=== PATIENT | male | born 1990 | race Caucasian/White ===

== ENCOUNTER 2019-05-05 20:34 | Inpatient (IN) | payer BC, MEDICAID, OTHER ==
[~2019-05-05] VITALS: Ht 182.9 cm; Wt 81.0 kg
[2019-05-05] MEDS ORDERED: pantoprazole 40 MG vial IV ONE (21:10)
[2019-05-05] MEDS ORDERED: normal saline 1000ml 1,000 ML IV ONE (21:15)
[2019-05-05] MEDS ORDERED: ESOMEPRAZOLE 40 MG VIAL IV ONE (21:15)
[2019-05-05] MEDS ORDERED: ondansetron/PF 4mg/2ml inj IV ONE (21:15)
[2019-05-05 21:33] LABS: BASOPHILS # (AUTO) 0.1 X10'3 (0-0.2); BASOPHILS % (AUTO) 1.2 % (0-1); EOSINOPHILS # (AUTO) 0.1 X10'3 (0-0.9); EOSINOPHILS % (AUTO) 0.8 % (0-6); HEMATOCRIT 45.3 % (42.0-52.0); HEMOGLOBIN 15.5 g/dl (14.0-17.9); LYMPHOCYTES # (AUTO) 2.4 X10'3 (1.1-4.8); LYMPHOCYTES % (AUTO) 31.5 % (21-51); MEAN CORPUSCULAR HEMOGLOBIN 33.5 PG (27.0-31.0); MEAN CORPUSCULAR HGB CONC 34.3 g/dL (33.0-36.5); MEAN CORPUSCULAR VOLUME 97.7 FL (78-98); MEAN PLATELET VOLUME 8.3 FL (7.4-10.4); MONOCYTES # (AUTO) 1.2 X10'3 (0-0.9); MONOCYTES % (AUTO) 15.3 % (2-12); NEUTROPHILS # (AUTO) 3.9 X10'3 (1.8-7.7); NEUTROPHILS % (AUTO) 51.2 % (42-75); PLATELET COUNT 240 X10'3 (140-440); RED BLOOD COUNT 4.64 X10'6 (4.70-6.10); RED CELL DISTRIBUTION WIDTH 14.8 % (11.5-14.5); WHITE BLOOD COUNT 7.7 X10'3 (4.5-11.0)
[2019-05-05 21:43] LABS: ALANINE AMINOTRANSFERASE 531 U/L (12-78); ALBUMIN 3.6 G/DL (3.4-5.0); ALKALINE PHOSPHATASE 182 IU/L (46-116); ANION GAP 10 (8-16); ASPARTATE AMINO TRANSFERASE 573 U/L (10-37); BILIRUBIN,TOTAL 3.3 MG/DL (0.1-1.0); BLOOD UREA NITROGEN 20 MG/DL (7-18); BUN/CREATININE RATIO 24.7 (5.4-32.0); CALCIUM 8.5 MG/DL (8.5-10.1); CHLORIDE 105 MMOL/L (99-107); CREATININE 0.81 MG/DL (0.60-1.10); GLUCOSE 103 MG/DL (70-104); POTASSIUM 3.7 MMOL/L (3.5-5.1); SODIUM 138 MMOL/L (135-145); TOTAL CARBON DIOXIDE 23.1 MMOL/L (24-32); TOTAL PROTEIN 7.1 G/DL (6.4-8.2); eGFR > 90 ML/MIN
[2019-05-05] MEDS: pantoprazole 40MG/NS 100ML BAG 100 ML IV SCH (22:02)
[2019-05-05] MEDS ORDERED: NO HOME MEDS (22:14)
[2019-05-05] MEDS ORDERED: mag hydrox/Alum hydrox/simeth 30ml oral suspension PO PRN (22:15)
[2019-05-05] MEDS ORDERED: magnesium hydroxide 30ml (MOM) UD suspension PO PRN (22:15)
[2019-05-05] MEDS ORDERED: haloperidol 5mg tablet PO PRN (22:15)
[2019-05-05] MEDS ORDERED: thiamine inj. 100 MG in normal saline 100ml IV soln 100 ML IV ONE (22:15)
[2019-05-05] MEDS ORDERED: haloperidol lactate 5mg/ml inj IM PRN (22:15)
[2019-05-05] MEDS ORDERED: acetaminophen 325mg tablet PO PRN (22:15)
[2019-05-05 22:17] LABS: GASTRIC OCCULT BLOOD POSITIVE (Neg)
[2019-05-05 23:30] VITALS: BP 117/52
[2019-05-05] MEDS ORDERED: nicotine 14mg patch - 24hr TD ONE ×2 (23:40→23:55)
[2019-05-05] MEDS: LORazepam 2 mg/ml vial IV PRN (23:48)
[2019-05-06] VITALS (8 sets, daily range): BP systolic 118–161; BP diastolic 60–90
--- NOTE | 2019-05-06 | NUR ---
Patient in room [facility]. I have received report from Enedina LEVINE RN and had the opportunity to ask questions and assume patient care.
[2019-05-06] MEDS: normal saline 1000ml 1,000 ML IV SCH ×3 (00:02→18:11)
[2019-05-06] MEDS ORDERED: pantoprazole 40MG/NS 100ML BAG 100 ML IV SCH (01:00)
[2019-05-06] MEDS: pantoprazole 40MG/NS 100ML BAG 100 ML IV SCH ×5 (03:56→21:00)
[2019-05-06 05:24] LABS: BASOPHILS # (AUTO) 0.1 X10'3 (0-0.2); BASOPHILS % (AUTO) 1.1 % (0-1); EOSINOPHILS # (AUTO) 0.1 X10'3 (0-0.9); EOSINOPHILS % (AUTO) 1.5 % (0-6); HEMATOCRIT 39.4 % (42.0-52.0); HEMOGLOBIN 13.5 g/dl (14.0-17.9); LYMPHOCYTES # (AUTO) 2.1 X10'3 (1.1-4.8); LYMPHOCYTES % (AUTO) 33.3 % (21-51); MEAN CORPUSCULAR HEMOGLOBIN 33.2 PG (27.0-31.0); MEAN CORPUSCULAR HGB CONC 34.2 g/dL (33.0-36.5); MEAN CORPUSCULAR VOLUME 97.1 FL (78-98); MEAN PLATELET VOLUME 8.5 FL (7.4-10.4); MONOCYTES # (AUTO) 1.2 X10'3 (0-0.9); MONOCYTES % (AUTO) 19.3 % (2-12); NEUTROPHILS # (AUTO) 2.8 X10'3 (1.8-7.7); NEUTROPHILS % (AUTO) 44.8 % (42-75); PLATELET COUNT 190 X10'3 (140-440); RED BLOOD COUNT 4.06 X10'6 (4.70-6.10); RED CELL DISTRIBUTION WIDTH 15.1 % (11.5-14.5); WHITE BLOOD COUNT 6.2 X10'3 (4.5-11.0)
[2019-05-06 05:38] LABS: ALBUMIN 2.9 G/DL (3.4-5.0); ANION GAP 8 (8-16); BLOOD UREA NITROGEN 19 MG/DL (7-18); BUN/CREATININE RATIO 27.1 (5.4-32.0); CALCIUM 8.2 MG/DL (8.5-10.1); CHLORIDE 110 MMOL/L (99-107); GLUCOSE 94 MG/DL (70-104); POTASSIUM 3.9 MMOL/L (3.5-5.1); SODIUM 143 MMOL/L (135-145); eGFR > 90 ML/MIN
--- NOTE | 2019-05-06 06:35 | NUR ---
Problems reprioritized. Patient report given, questions answered & plan of care reviewed with STEVENSON Cummings.
[2019-05-06] MEDS ORDERED: thiamine 100mg tablet PO SCH (08:00)
[2019-05-06] MEDS: LORazepam 2 mg/ml vial IV PRN ×2 (08:13→11:43)
[2019-05-06] MEDS: nicotine 14mg patch - 24hr TD SCH (08:14)
[2019-05-06] MEDS: ondansetron/PF 4mg/2ml inj IV PRN (08:23)
[2019-05-06] MEDS: thiamine inj. 100 MG in normal saline 100ml IV soln 100 ML IV SCH (11:45)
[2019-05-06] MEDS ORDERED: MIDAZolam 5mg/5ml vial ONE (13:55)
[2019-05-06] MEDS ORDERED: fentaNYL/PF 50MCG/1 ML 2ML syringe ONE (13:55)
[2019-05-06] MEDS ORDERED: LIDOcaine Viscous 15ml cup ONE (13:55)
[2019-05-06] MEDS ORDERED: epiNEPHrine 0.1mg/ml 10ml syringe ONE (14:52)
--- NOTE | 2019-05-06 18:22 | NUR ---
Problems reprioritized. Patient report given, questions answered & plan of care reviewed with Mary Lou Talbot RN.
[2019-05-07] VITALS: BP 126/76
[2019-05-07] MEDS: pantoprazole 40MG/NS 100ML BAG 100 ML IV SCH ×5 (01:04→21:05)
[2019-05-07] MEDS: normal saline 1000ml 1,000 ML IV SCH ×3 (01:04→21:47)
--- NOTE | 2019-05-07 03:55 | NUR ---
Urine sent to lab for UA
[2019-05-07 04:04] LABS: CLARITY,URINE CLEAR (Clear); COLOR,URINE YELLOW (Yellow); GLUCOSE, URINE NEGATIVE (Neg); KETONES,URINE NEGATIVE (Neg); LEUKOCYTE ESTERASE ,URINE NEGATIVE (Neg); NITRITES, URINE NEGATIVE (Neg); OCCULT BLOOD,URINE NEGATIVE (Neg); PH,URINE 6.5 (4.8-8.0); PROTEIN,URINE NEGATIVE (Neg); UA COLLECTION TYPE VOIDED
[2019-05-07] MEDS: ondansetron/PF 4mg/2ml inj IV PRN (05:19)
[2019-05-07] MEDS: LORazepam 1 MG tablet PO PRN ×2 (05:19→19:34)
[2019-05-07 05:59] LABS: BASOPHILS # (AUTO) 0.1 X10'3 (0-0.2); BASOPHILS % (AUTO) 1.4 % (0-1); EOSINOPHILS # (AUTO) 0.1 X10'3 (0-0.9); EOSINOPHILS % (AUTO) 1.9 % (0-6); HEMATOCRIT 36.3 % (42.0-52.0); HEMOGLOBIN 12.7 g/dl (14.0-17.9); LYMPHOCYTES # (AUTO) 1.6 X10'3 (1.1-4.8); LYMPHOCYTES % (AUTO) 38.5 % (21-51); MEAN CORPUSCULAR HEMOGLOBIN 34.3 PG (27.0-31.0); MEAN CORPUSCULAR HGB CONC 34.8 g/dL (33.0-36.5); MEAN CORPUSCULAR VOLUME 98.6 FL (78-98); MEAN PLATELET VOLUME 8.8 FL (7.4-10.4); MONOCYTES # (AUTO) 0.8 X10'3 (0-0.9); MONOCYTES % (AUTO) 18.3 % (2-12); NEUTROPHILS # (AUTO) 1.7 X10'3 (1.8-7.7); NEUTROPHILS % (AUTO) 39.9 % (42-75); PLATELET COUNT 191 X10'3 (140-440); RED BLOOD COUNT 3.69 X10'6 (4.70-6.10); WHITE BLOOD COUNT 4.2 X10'3 (4.5-11.0)
--- NOTE | 2019-05-07 06:18 | NUR ---
Problems reprioritized. Patient report given, questions answered & plan of care reviewed with STEVENSON Randall.
[2019-05-07 06:39] LABS: ALANINE AMINOTRANSFERASE 495 U/L (12-78); ALBUMIN 2.7 G/DL (3.4-5.0); ALKALINE PHOSPHATASE 131 IU/L (46-116); ANION GAP 7 (8-16); ASPARTATE AMINO TRANSFERASE 555 U/L (10-37); BILIRUBIN,TOTAL 4.5 MG/DL (0.1-1.0); BLOOD UREA NITROGEN 15 MG/DL (7-18); BUN/CREATININE RATIO 18.1 (5.4-32.0); CHLORIDE 108 MMOL/L (99-107); CREATININE 0.83 MG/DL (0.60-1.10); GLUCOSE 82 MG/DL (70-104); POTASSIUM 4.3 MMOL/L (3.5-5.1); SODIUM 139 MMOL/L (135-145); TOTAL CARBON DIOXIDE 23.9 MMOL/L (24-32); eGFR > 90 ML/MIN
[2019-05-07 06:45] LABS: TOTAL PROTEIN 5.4 G/DL (6.4-8.2)
[2019-05-07 07:15] VITALS: BP 138/71
[2019-05-07] MEDS: nicotine 14mg patch - 24hr TD SCH (07:19)
[2019-05-07] MEDS: thiamine inj. 100 MG in normal saline 100ml IV soln 100 ML IV SCH (07:19)
[2019-05-07 11:00] VITALS: BP 120/59
[2019-05-07 13:09] LABS: HBSAG SCREEN Negative (Negative); HEP A AB, IGM Negative (Negative); HEP B CORE AB, IGM Negative (Negative); HEPATITIS C ANTIBODY <0.1 s/co ratio (0.0-0.9)
[2019-05-07] MEDS ORDERED: NICOTINE POLACRILEX 2 MG LOZENGE BC PRN (17:05)
--- NOTE | 2019-05-07 18:11 | NUR ---
Problems reprioritized. Patient report given, questions answered & plan of care reviewed with STEVENSON CLEARY.
[2019-05-07 20:00] VITALS: BP 131/66
[2019-05-07] MEDS ORDERED: oxyCODONE IR 5mg (immed. release) tablet PO PRN (21:00)
[2019-05-07] MEDS: LORazepam 2 mg/ml vial IV PRN (23:16)
[2019-05-08] VITALS: BP 121/66
[2019-05-08] MEDS: pantoprazole 40MG/NS 100ML BAG 100 ML IV SCH (00:57)
--- NOTE | 2019-05-08 00:57 | NUR ---
Pt rolled in bed, caught RAC IV on bedrail and pulled out. Placed sleeve over remaining IV site.
[2019-05-08 04:47] LABS: BASOPHILS % (AUTO) 1.2 % (0-1); EOSINOPHILS # (AUTO) 0.1 X10'3 (0-0.9); EOSINOPHILS % (AUTO) 2.7 % (0-6); HEMATOCRIT 36.4 % (42.0-52.0); HEMOGLOBIN 12.4 g/dl (14.0-17.9); LYMPHOCYTES # (AUTO) 1.6 X10'3 (1.1-4.8); LYMPHOCYTES % (AUTO) 41.2 % (21-51); MEAN CORPUSCULAR HEMOGLOBIN 33.6 PG (27.0-31.0); MEAN CORPUSCULAR HGB CONC 34.1 g/dL (33.0-36.5); MEAN CORPUSCULAR VOLUME 98.4 FL (78-98); MEAN PLATELET VOLUME 8.5 FL (7.4-10.4); MONOCYTES # (AUTO) 0.7 X10'3 (0-0.9); MONOCYTES % (AUTO) 19.1 % (2-12); NEUTROPHILS # (AUTO) 1.4 X10'3 (1.8-7.7); NEUTROPHILS % (AUTO) 35.8 % (42-75); PLATELET COUNT 180 X10'3 (140-440); RED CELL DISTRIBUTION WIDTH 14.4 % (11.5-14.5); WHITE BLOOD COUNT 3.9 X10'3 (4.5-11.0)
[2019-05-08 05:14] LABS: ALANINE AMINOTRANSFERASE 458 U/L (12-78); ALBUMIN 2.8 G/DL (3.4-5.0); ALKALINE PHOSPHATASE 142 IU/L (46-116); ANION GAP 10 (8-16); ASPARTATE AMINO TRANSFERASE 412 U/L (10-37); BILIRUBIN,TOTAL 2.4 MG/DL (0.1-1.0); BLOOD UREA NITROGEN 11 MG/DL (7-18); BUN/CREATININE RATIO 12.9 (5.4-32.0); CALCIUM 8.2 MG/DL (8.5-10.1); CHLORIDE 110 MMOL/L (99-107); CREATININE 0.85 MG/DL (0.60-1.10); GLUCOSE 97 MG/DL (70-104); SODIUM 143 MMOL/L (135-145); TOTAL CARBON DIOXIDE 23.2 MMOL/L (24-32); TOTAL PROTEIN 5.5 G/DL (6.4-8.2); eGFR > 90 ML/MIN
[2019-05-08] MEDS: normal saline 1000ml 1,000 ML IV SCH ×2 (06:39→10:11)
--- NOTE | 2019-05-08 06:45 | NUR ---
Problems reprioritized. Patient report given, questions answered & plan of care reviewed with STEVENSON Calhoun.
[2019-05-08 07:24] VITALS: BP 116/56
[2019-05-08] MEDS: thiamine inj. 100 MG in normal saline 100ml IV soln 100 ML IV SCH (08:00)
[2019-05-08] MEDS ORDERED: pantoprazole 40mg Tablet.DR PO SCH (08:35)
[2019-05-08] MEDS ORDERED: thiamine 100mg tablet PO SCH (08:35)
[2019-05-08] MEDS: nicotine 14mg patch - 24hr TD SCH (08:44)
[2019-05-08 11:00] VITALS: BP 107/57
[2019-05-08] MEDS ORDERED: PANT-47 PO (11:51)
[2019-05-08] MEDS ORDERED: FOLI0.4T2 PO (11:51)
[2019-05-08] MEDS ORDERED: THIA100T66 PO (11:51)
--- NOTE | 2019-05-08 13:56 | NUR ---
Patients discharge instruction reviewed with patient and girlfriend at bedside all questions answered. Patient verbalized understanding. Patient received a note from Dr Andrews for work release. Patients medication delivered by [facility] bedside delivery. IV dc'd cannula intact. Patient taken to vehicle via wheelchair.
== END 2019-05-08 13:40 | disposition home or self-care (01) | DRG 369 ==
LOC: ER 20:35 → SUR 3N 22:25 → CMPBEDREQ 05-06 21:00
PROVIDERS: ADMIT Hospitalist; ATTEND Family Medicine
PROC: 0W3P8ZZ Control Bleeding in Gastrointestinal Tract, Via Natural or Artificial Opening Endoscopic (ICD-10-PCS; principal; 2019-05-06)
DX: K22.6 Gastro-esophageal laceration-hemorrhage syndrome (principal); D62 Acute posthemorrhagic anemia; K70.10 Alcoholic hepatitis without ascites; K22.8 Other specified diseases of esophagus; F17.220 Nicotine dependence, chewing tobacco, uncomplicated; F10.20 Alcohol dependence, uncomplicated; Z88.6 Allergy status to analgesic agent; Z88.2 Allergy status to sulfonamides; Z71.41 Alcohol abuse counseling and surveillance of alcoholic
CPT/HCPCS: 36415; 43255; 76700; 80048; 80053; 80074; 81003; 82271; 85025; 85610; 86885; 86900; 86901; 87081; 93005; 96361; 96374; 96375; 99152; 99285; A4620; C9113; G0378; J0171; J2060; J2250; J2405; J3010; J3411; J7030; J7040

== ENCOUNTER 2025-02-09 10:51 | Emergency (ER) | payer BC, MEDICAID ==
[~2025-02-09] VITALS: Ht 182.9 cm; Wt 72.9 kg
[~2025-02-09 10:51] MED LIST: PANT-47 PO; THIA100T66 PO
[2025-02-09 10:59] VITALS: BP 139/88; PULSE 117; TEMP 98; O2SAT 98
--- NOTE | 2025-02-09 11:05 | Physician Documentation ---
History of Present Illness ~ Chief Complaint: Knee Pain Stated Complaint: POST FALL LEFT LEG PAIN Time Seen by MD: 11:09 HPI 34-year-old male presents to the ED with a complaint of left knee pain after falling and injuring his knee today. Patient has a hinge knee immobilizer in place from a previous injury. feels as though he re-injured his knee causing further pain and swelling. Pain patient fell while he was preparing to come to the hospital for alcohol detox. New line patient acknowledges his last drink was this morning and states that he normally drinks a 5th a day. Has a history of stage I cirrhosis. He has had multiple times where he quit drinking in his attempting to be medically cleared for rehab Day of Onset: Feb 09, 2025 Tetanus witin 5 years: Yes Medication Reconciliation Allergies: Coded Allergies: Sulfa (Sulfonamide Antibiotics) (Verified Allergy, Unknown, 05/05/19) Scheduled Pantoprazole Sodium (PROTONIX tablet), 40 MG PO BID Thiamine Hcl (Vitamine B-1), 100 MG PO DAILY Scheduled PRN Chlordiazepoxide Hcl (Librium), 2 CAP PO Q4H PRN for anxiety Review of Systems All Other Systems at this time: Reviewed and Negative ROS As stated above in the HPI, otherwise all systems are reviewed and negative. Physical Exam Vital Signs: Temperature: 98.0, Source: Temporal, Heart Rate: 117, Respiratory Rate: 16, BP: 139/88, Pulse Oximetry: 98, Weight: 72.900 Oxygen Flow Rate: 0 Physical Exam General: Alert, no apparent distress. HEENT: PERRL, EOMI, no injection, moist mucous membranes. Extremities: hinge brace in place. Severe tenderness to the medial aspect of the left knee via palpation. Unable to complete full exam due to pain Neurologic: Oriented x4. Psychiatric: Normal mood and affect. Skin: Normal color, warm and dry. No edema, no ecchymosis. Progress Results/Orders Results/Orders Completed Orders - LEONORA ALEXANDER NP Ketorolac Trometh 30mg/Ml Vial (Toradol (02/09/25 12:10) Medications Received in ER Medications (Trade) Dose Ordered Sig/Noe Route PRN Reason Start Time Stop Time Status Last Admin Dose Admin (Toradol inj. 30mg/ml) 30 mg ONCE ONCE IM 02/09/25 12:10 02/09/25 12:21 DC 02/09/25 12:27 30 MG Vital Signs 02/09/25 02/09/25 02/09/25 10:59 12:27 12:40 Temp 98.0 Pulse 117 Resp 16 17 B/P (MAP) 139/88 Pulse Ox 98 O2 Flow Rate 0 Medical Decision Making Findings Going to medically clear this patient for alcohol rehab and start him on a tapering dose of Librium. he really needs to get to an orthopedic surgeon for further evaluation of his left knee which will require an MRI for appropriate imaging. I do suspect internal knee derangement. General Diff Dx:Considerations: Include: Abrasion, Contusion, Fracture, Hematoma, Laceration, Malunion, Neurovascular injury, Open fracture, Sprain, Ulcer, Other Knee Diff Dx:Considerations: Include: Abrasion, Arthritis, Contusion, DJD, Fracture-femur, Fracture-fibula, Fracture-patella, Fracture-tibia, Gout, Hematoma, Laceration, Meniscus injury, Neurovascular injury, Open fracture, Rheumatoid arthritis, Septic, Sprain, Sprain-MCL, Sprain-LCL, Sprain-ACL, Sprain-PCL, Other Departure Disposition: HOME / SELF CARE / HOMELESS Impression: Primary Impression: Knee pain Condition: Stable Discharge Instructions: Acute Knee Pain, Adult, Alcohol Withdrawal Syndrome, [id number] Additional Instructions: You are medically cleared for alcohol rehab. Recommend following up with Orthopedics for further evaluation of your left knee. You may do this by referral or making an appointment at their office. Referrals: NO PRIMARY CARE PROVIDER (PCP) [facility] Prescriptions Chlordiazepoxide Hcl (Librium) 25 Mg Capsule 2 CAP PO Q4H PRN for anxiety for 5 Days, #30 CAP 0 Refills Prov: LEONORA ALEXANDER NP 02/09/25 Signature Scribe Signature: g Attestation: The note accurately reflects work and decisions made by me.Leonora Alexander - LEEANNA 02/09/25 18:22 LEONORA ALEXANDER NP Feb 09, 2025 11:05
--- NOTE | 2025-02-09 11:40 | RADIOLOGY REPORT ---
EXAM: DI KNEE, COMP 4 VW MIN CLINICAL INDICATION: KNEE PAIN TECHNIQUE: DI KNEE, COMP 4 VW MIN Comparison: None FINDINGS/IMPRESSION: There is no evidence of acute fracture or dislocation. Moderate left knee osteoarthritis. The alignment is anatomical. There is no radiopaque foreign body.
[2025-02-09] MEDS ORDERED: CHLO25CA10 PO (12:02)
[2025-02-09 12:27] VITALS: RESP 17
[2025-02-09] MEDS: ketorolac trometh 30MG/ML vial 30 MG/ML VIAL IM ONE (12:27)
== END 2025-02-09 12:10 | disposition home or self-care (01) ==
LOC: ER 10:51
DX: M25.562 Pain in left knee (principal); Z88.2 Allergy status to sulfonamides
CPT/HCPCS: 73564; 96372; 99283; J1885